=== PATIENT | male | born 1990 | race Two or more races ===

== ENCOUNTER 2025-02-10 10:08 | Emergency (ER) | payer MEDICAID, SELFPAY ==
[2025-02-10 10:58] VITALS: BP 120/76; PULSE 82; RESP 16; TEMP 36.8; O2SAT 96; BMI 23.6
--- NOTE | 2025-02-10 11:06 | PD.EDADULT ---
ED General RME/HPI General Chief complaint: General Adult/Misc Complain Stated complaint: NEEDS PRESCRIPTION REFILL Time Seen by Provider: 02/10/25 10:56 Arrival date/time: 02/10/25 10:08 This is a 34-year-old male that comes into the emergency room with complaints of needing a Suboxone refill. Patient states that he takes Suboxone for opiate dependence. Patient states that a couple times this month he took a bigger dose when he got anxious and now he does not get a new refill until later this week. Patient denies any other complaints. Patient is scared of not taking the medication as he takes it every day. Related Data Home Medications ?Medication ?Instructions ?Recorded ?Confirmed elviteg 150 mg-cob 150 mg-emtricit 1 tab PO QDAY HIV ##0 11/12/14 03/31/20 200 mg-tenofo alafenam 10 mg tablet (Genvoya) tramadol 50 mg tablet 50 mg PO BID 03/31/20 03/31/20 Previous Rx's ?Medication ?Instructions ?Recorded buprenorphine 2 mg-naloxone 0.5 mg 1 film buccal QDAY #2 ea 02/10/25 sublingual film (Suboxone) Allergies Allergy/AdvReac Type Severity Reaction Status Date / Time azithromycin Allergy Severe RASH, Verified 02/10/25 10:11 ITCHING Review of Systems Review of Systems Systems Reviewed: All systems reviewed, normal except as documented Past Medical History Past Medical History CARDIAC: Negative Congestive Heart Failure RESPIRATORY: Negative Chronic Obstructive Pulmonary Disease (COPD) GENITOURINARY: Negative Renal Disease ENDOCRINE: Negative Diabetes Mellitus Type 1 or Diabetes Mellitus Type 2 OTHER HISTORY: Positive Human Immunodeficiency Virus (HIV) Family History FAMILY HISTORY: Negative Family Cardiac Disorders Social History SMOKING STATUS: Never smoker Travel History EBOLA RISK: No ED Exam Narrative Physical exam: VITAL SIGNS: Reviewed. GENERAL APPEARANCE: Alert and interactive, follows commands, no acute distress HEAD AND FACE: Non-traumatic. ENT: PERRL, conjuctiva pink and clear, eyelid no trauma, Mucous membrane moist. NECK: Supple, nontender, no nuchal rigidity. CHEST: No tenderness, no crepitus, no paradoxical movement, no retractions. LUNGS: breathing even and unlabored HEART: Regular rate, cap refill less than 2 seconds ABDOMEN: Soft, nondistended NEUROLOGICAL: Gross motor function intact sensory function intact, Appropriate for age. MUSCULOSKELETAL: low back nontender, full range of motion EXTREMITIES: No redness no swelling no skin breakdown on bilateral foot and leg. Distal neurovascular status intact bilateral foot SKIN: Color pink, dry, no rash, no lacerations, no abrasions, no contusions. Course Quality Measures none Vital Signs Vital signs: Vital Signs Temperature 98.2 F 02/10/25 10:58 Pulse Rate 82 02/10/25 10:58 Respiratory Rate 16 02/10/25 10:58 Blood Pressure 120/76 02/10/25 10:58 Pulse Oximetry (%) 96 02/10/25 10:58 Oxygen Delivery Method Room Air 02/10/25 10:58 Discharge Plan Plan Patient Disposition: HOME (Self Care) Patient condition on transfer: Stable Prescriptions/Referrals Prescriptions/Med Rec: New buprenorphine-naloxone [Suboxone] 2-0.5 mg film 1 film buccal QDAY Qty: 2 0RF Rx Instructions: place 1 strip/tab under (each) side of tongue No Action Genvoya [phone] mg Tablet 1 tab PO QDAY Qty: 0 tramadol 50 mg tablet 50 mg PO BID Patient Comments: TAKE 1 TABLET BY MOUTH TWICE A DAY NEEDED Problem List Clinical Impression: Opioid dependence, Encounter for medication refill Patient/Caregiver Discharge Instructions Discharge Activity: activity as tolerated Education Materials: ED Pain Management: Chronic Additional Instructions: Please make an appointment with primary provider tomorrow to get a refill on your medication. Come back to the emergency room if symptoms change or worsen Print Language: Venezuelan Stand Alone Forms: [facility] Award Info., Patient Portal Info Letter SHAYLA/CHICHI Supervising Physician PA/CHICHI Supervising Physician: julissa GALICIA Narrative MDM hospital course (for use when minimal MDM required): I spoke to patient at length. I explained to him that we typically do not have Suboxone here in the emergency room. I did call pharmacy to see if we can have patient get a dose here in the emergency room. But we do not have this medication. I told patient that we typically do not prescribe this medication in the emergency room but because it is a weekend I do not want him to be without his medication. I will give him 2 pills to take at home. I did talk to him at length that it is important that he call tomorrow morning and make an appointment with his doctor and let them know that he ran out of his prescription early. Patient is on the smallest dose of Suboxone at this time. His dose seems to be 2 mg - 0.5 mg. Patient verbalized understanding and feels comfortable plan of care. Follow up with primary provider in 1-2 days. Come back to ED if symptoms change or worsen Sherif dictation: Although this document has been carefully reviewed, there may still be some phonetic and other typographical errors. These errors are purely grammatical due to imperfections in the software program and should not be construed in any way to compromise the substance of the patient's medical care during this visit. Clinical Information Provided by: patient Medical Records reviewed [facility]
== END 2025-02-10 11:22 | disposition home or self-care (01) ==
PROVIDERS: Emergency Provider Emergency Medicine
DX: Z76.0 Encounter for issue of repeat prescription (principal); F11.20 Opioid dependence, uncomplicated
CPT/HCPCS: 99281